=== PATIENT | female | born 1985 | race Caucasian/White ===

== ENCOUNTER 2020-07-22 11:07 | Inpatient (IN) ==
[2020-07-22] MEDS ORDERED: 0.9 % Sodium Chloride 1,000 ML ONE (11:23)
[2020-07-22] MEDS: 0.9 % Sodium Chloride 1,000 ML IVC SCH ×3 (11:30→22:28)
[2020-07-22 11:40] LABS: Basophils % 0.5 %; Eosinophils # 0.1 K/mcL (0.0-0.6); Eosinophils % 1.2 %; Hematocrit 44.4 % (35.3-44.9); Hemoglobin 14.3 g/dL (11.5-15.4); Immature Granulocytes % 0.2 % (0-4); Immature Platelets 4.9 % (1.1-6.1); Lymphocytes # 0.6 K/mcL (0.6-4.6); Lymphocytes % 11.3 %; Mean Corpuscular HGB Conc 32.2 g/dL (31.6-35.5); Mean Corpuscular Volume 96.1 fL (83.0-100.0); Monocytes # 0.3 K/mcL (0.0-1.3); Monocytes % 4.9 %; Neutrophils # 4.6 K/mcL (1.6-8.9); Platelet Count 115 K/mcL (140-400); Red Blood Count 4.62 M/mcL (3.82-4.97); Red Cell Distribution Width 13.8 % (11.5-14.5); Segmented Neutrophils % 81.9 %; White Blood Count 5.7 K/mcL (4.3-11.1)
[2020-07-22 11:45] LABS: Prothrombin Time 11.9 Seconds (9.4-12.1)
[2020-07-22 11:48] LABS: Activated Partial Thrombo Time 26.5 Seconds (26.0-36.0)
[2020-07-22 11:58] LABS: Alanine Aminotransferase 20 Units/L (7-52); Albumin/Globulin Ratio 1.3 (1.1-2.2); Alkaline Phosphatase 91 Units/L (34-104); Aspartate Amino Transferase 15 Units/L (13-39); BUN/Creatinine Ratio 14 (6-26); Bilirubin,Direct 0.1 mg/dL (0.0-0.2); Bilirubin,Indirect 0.6 mg/dL (0.0-1.0); Bilirubin,Total 0.7 mg/dL (0.3-1.0); Blood Urea Nitrogen 14 mg/dL (6-20); Calcium 9.2 mg/dL (8.6-10.3); Carbon Dioxide 23 mEq/L (23-29); Chloride 104 mEq/L (98-107); Glucose 128 mg/dL (70-105); Lipase 19 Units/L (11-82); Magnesium 1.9 mg/dL (1.6-2.6); Osmolality,Calculated 286 (280-300); Phosphorous 3.9 mg/dL (2.7-4.5); Potassium 4.1 mEq/L (3.5-5.1); Sodium 137 mEq/L (136-145); Troponin I < 0.03 ng/mL (< 0.04); eGFR For African Americans > 60 (> 60); eGFR For Non-African Americans > 60 (> 60)
[2020-07-22] MEDS ORDERED: Isovue-370 500 ML BOTTLE IVP ONE (12:53)
[2020-07-22] MEDS ORDERED: Piperacillin/Tazobactam 3.375 GM in Water for inj. (sterile) 20 ML IVP ONE (13:48)
[2020-07-22] MEDS ORDERED: 0.9 % Sodium Chloride 1,000 ML IVC ONE (13:48)
[2020-07-22 14:16] LABS: Bilirubin,Urine Negative (Negative); Blood,Urine Negative (Negative); Clarity,Urine Clear (Clear); Color,Urine Light-Yellow (Yellow); Glucose,Urine (UA) Normal (Normal); Ketones,Urine Negative (Negative); Leukocyte Esterase,Urine Small (Negative); Nitrite,Urine Negative (Negative); PH,Urine 6.5 pH Units (5.0-8.0); Protein,Urine Negative (Neg-Trace); RBC,Urine 0-3 per hpf (0-3); Squamous Epithelial Cell,Urine Few per hpf (None-Few); Urobilinogen,Urine Normal (Normal)
[2020-07-22 15:58] LABS: Thyroid Stimulating Hormone 3.639 mcIU/mL (0.340-5.600)
[2020-07-22] MEDS ORDERED: *HR* Norepinephrine 4 MG/4 ML VIAL IVC ONE (16:12)
[2020-07-22] MEDS ORDERED: 0.9 % Sodium Chloride 250 ML ONE (16:12)
[2020-07-22] MEDS ORDERED: Norepinephrine 4 MG/254 ML IV.SOLN IVC SCH (16:15)
[2020-07-22] MEDS ORDERED: Naloxone 0.4 MG/ML INJ IVP PRN (16:32)
[2020-07-22] MEDS ORDERED: Acetaminophen 325 MG TABLET PO PRN (16:32)
[2020-07-22] MEDS: *HR* Heparin 5,000 UNIT/ML VIAL SQ SCH (22:28)
[2020-07-23 04:43] LABS: Alanine Aminotransferase 14 Units/L (7-52); Albumin/Globulin Ratio 1.3 (1.1-2.2); Alkaline Phosphatase 69 Units/L (34-104); Aspartate Amino Transferase 11 Units/L (13-39); BUN/Creatinine Ratio 12 (6-26); Bilirubin,Direct 0.1 mg/dL (0.0-0.2); Bilirubin,Indirect 0.4 mg/dL (0.0-1.0); Bilirubin,Total 0.5 mg/dL (0.3-1.0); Blood Urea Nitrogen 9 mg/dL (6-20); Calcium 7.8 mg/dL (8.6-10.3); Carbon Dioxide 21 mEq/L (23-29); Chloride 111 mEq/L (98-107); Globulin 2.3 g/dL (2.4-3.5); Glucose 120 mg/dL (70-105); Magnesium 1.9 mg/dL (1.6-2.6); Osmolality,Calculated 288 (280-300); Potassium 3.6 mEq/L (3.5-5.1); Sodium 139 mEq/L (136-145); Total Protein 5.3 g/dL (6.4-8.9); eGFR For African Americans > 60 (> 60); eGFR For Non-African Americans > 60 (> 60)
[2020-07-23] MEDS: *HR* Heparin 5,000 UNIT/ML VIAL SQ SCH (05:46)
[2020-07-23 06:15] LABS: Hematocrit 34.1 % (35.3-44.9); Hemoglobin 11.1 g/dL (11.5-15.4); Immature Platelets 8.9 % (1.1-6.1); Mean Corpuscular HGB Conc 32.6 g/dL (31.6-35.5); Mean Corpuscular Hemoglobin 30.8 pg (28.0-33.3); Mean Corpuscular Volume 94.7 fL (83.0-100.0); Mean Platelet Volume 11.9 fL (9.4-12.4); Red Blood Count 3.6 M/mcL (3.82-4.97); Red Cell Distribution Width 13.8 % (11.5-14.5); White Blood Count 3.1 K/mcL (4.3-11.1)
[2020-07-23 06:17] LABS: INR 1.1; Prothrombin Time 12.3 Seconds (9.4-12.1)
[2020-07-23 06:19] LABS: Activated Partial Thrombo Time 27.5 Seconds (26.0-36.0)
[2020-07-23] MEDS: 0.9 % Sodium Chloride 1,000 ML IVC SCH ×2 (08:22→11:33)
[2020-07-23] MEDS ORDERED: Perflutren Lipid Microsphere 1.3 ML in 0.9 % Sodium Chloride 8.7 ML IVP PRN ×2 (12:02→13:04)
[2020-07-23] MEDS ORDERED: Acetaminophen 325 MG TABLET PO PRN (13:04)
[2020-07-23 14:59] LABS: Mean Platelet Volume 11.4 fL (9.4-12.4)
[2020-07-23 15:26] LABS: Red Cell Distribution Width 13.8 % (11.5-14.5)
[2020-07-23 15:27] LABS: Immature Reticulocyte % 11.4 % (11.0-38.0); Retculocyte # 0.06 M/mcL (0.05-0.10); Reticulocyte % 1.6 % (1.6-2.8)
[2020-07-23 15:28] LABS: Hemoglobin 11.8 g/dL (11.5-15.4); Immature Platelets 10.6 % (1.1-6.1); Mean Corpuscular HGB Conc 32.8 g/dL (31.6-35.5); Mean Corpuscular Hemoglobin 31.1 pg (28.0-33.3); Mean Platelet Volume 12.2 fL (9.4-12.4); Red Blood Count 3.79 M/mcL (3.82-4.97); White Blood Count 3.5 K/mcL (4.3-11.1)
[2020-07-23 15:36] LABS: Platelet Count 24 K/mcL (140-400)
[2020-07-23 17:30] LABS: Basophils % 0.9 %; Eosinophils % 0.9 %; Immature Granulocytes % 0.3 % (0-4); Lymphocytes # 0.6 K/mcL (0.6-4.6); Lymphocytes % 19.1 %; Monocytes # 0.2 K/mcL (0.0-1.3); Monocytes % 7.4 %; Neutrophils # 2.3 K/mcL (1.6-8.9); Segmented Neutrophils % 71.4 %
[2020-07-24 05:22] LABS: Basophils % 0.7 %; Red Cell Distribution Width 13.8 % (11.5-14.5)
[2020-07-24 05:24] LABS: Eosinophils # 0.1 K/mcL (0.0-0.6); Eosinophils % 1.6 %; Hematocrit 34.7 % (35.3-44.9); Hemoglobin 11.5 g/dL (11.5-15.4); Immature Granulocytes % 0.5 % (0-4); Immature Platelets 10.9 % (1.1-6.1); Lymphocytes # 0.8 K/mcL (0.6-4.6); Lymphocytes % 19.2 %; Mean Corpuscular HGB Conc 33.1 g/dL (31.6-35.5); Mean Corpuscular Hemoglobin 31.3 pg (28.0-33.3); Mean Corpuscular Volume 94.3 fL (83.0-100.0); Mean Platelet Volume 12.1 fL (9.4-12.4); Monocytes # 0.3 K/mcL (0.0-1.3); Monocytes % 6.7 %; Neutrophils # 3.1 K/mcL (1.6-8.9); Red Blood Count 3.68 M/mcL (3.82-4.97); Segmented Neutrophils % 71.3 %; White Blood Count 4.3 K/mcL (4.3-11.1)
[2020-07-24 05:25] LABS: Platelet Count 31 K/mcL (140-400)
[2020-07-24 06:12] LABS: Hepatitis B Surface Antigen Nonreactive (Nonreactive)
[2020-07-24 06:40] LABS: Hepatitis B Core IgM Nonreactive (Nonreactive)
[2020-07-24 06:41] LABS: Hepatitis C Virus Antibody Nonreactive (Nonreactive)
[2020-07-24 06:42] LABS: Hepatitis A Antibody IgM Nonreactive (Nonreactive)
[2020-07-24] MEDS ORDERED: NON-FORMULARY MEDICATION 1 EACH EACH (Omega-3/Dha/Epa/Fish Oil [Fish Oil 1,000 Mg Softgel] PO SCH (09:00)
[2020-07-24] MEDS ORDERED: Cholecalciferol (D-3) 1,000 UNIT (25MCG) TABLET PO SCH ×2 (09:00)
[2020-07-24 14:53] VITALS: BP 103/63
== END 2020-07-24 17:04 | disposition home or self-care (01) | DRG 316 ==
LOC: EMEROOARM 11:07 → ICNU 19:39 → 3ANU 07-23 18:42
PROVIDERS: ADMIT Family Medicine; ATTEND Family Medicine